=== PATIENT | male | born 1990 | race African-American/Black ===

== ENCOUNTER 2022-09-20 10:43 | Emergency (ER) | payer OTHER ==
[~2022-09-20] VITALS: Ht 182.9 cm; Wt 93.2 kg
[2022-09-20] MEDS ORDERED: FLUORESCEIN SOD(OPTH) 1 MG STRP OP ONE (11:15)
[2022-09-20] MEDS ORDERED: TETRACAINE HCL 0.5% OPTH SOLN 4 ML BTL OP ONE (11:15)
[2022-09-20] MEDS ORDERED: [UNRECOGNIZED DRUG - SUPPLY] MC ONE (11:15)
[2022-09-20] MEDS ORDERED: TETRACAINE HCL 0.5% OPTH SOLN 4 ML BTL ONE (11:45)
[2022-09-20] MEDS ORDERED: FLUORESCEIN SOD(OPTH) 1 MG STRP ONE (11:45)
== END 2022-09-20 11:32 | disposition home or self-care (01) ==
LOC: FSED 10:54
DX: H10.211 Acute toxic conjunctivitis, right eye (principal); Y93.H9 Activity, other involving exterior property and land maintenance, building and construction
CPT/HCPCS: 99283